=== PATIENT | female | born 1980 | race Caucasian/White ===

== ENCOUNTER 2017-12-01 19:44 | Emergency (ER) | payer SELFPAY ==
[2017-12-01 21:03] VITALS: BP 154/65
--- NOTE | 2017-12-01 21:21 | ED Physician Documentation ---
PD HPI HEENT - Stated complaint Stated Complaint: NOSE INJ - Chief complaint Chief Complaint: Heent - History obtained from History obtained from: Patient - History of Present Illness Timing - onset: Other (Trip and fall hitting a table with her nose just prior to arrival. Pain is minor. She wonders if she might need her nose set.) Review of Systems Constitutional: reports: Reviewed and negative Throat: reports: Reviewed and negative Cardiac: reports: Reviewed and negative PD PAST MEDICAL HISTORY - Past Medical History Psych: Depression, Anxiety Musculoskeletal: Fibromyalgia Other Past Medical History: Enviromental Allergies, Carpel tunnel right wrist - Past Surgical History Past Surgical History: Yes General: Cholecystectomy - Present Medications Home Medications: Ambulatory Orders Medication Instructions Recorded Confirmed Fexofenadine HCl [Jania Allergy] 1 PO DAILY 12/01/17 Ibuprofen [Motrin] 1 TID 12/01/17 Nortriptyline HCl [Pamelor] 1 PO DAILY 12/01/17 diphenhydrAMINE [Benadryl] 1 PO PRN PRN 12/01/17 - Allergies Allergies/Adverse Reactions: Allergies Allergy/AdvReac Type Severity Reaction Status Date / Time azithromycin Allergy Intermediate Hives Verified 12/01/17 19:57 Cephalosporins Allergy Intermediate Hives Verified 12/01/17 19:57 - Social History Does the pt smoke?: No Smoking Status: Never smoker Does the pt drink ETOH?: Yes Does the pt have substance abuse?: No - Immunizations Immunizations are current?: No Immunizations: TDAP >10years/unknown PD ED PE NORMAL - Vitals Vital signs reviewed: Yes - General General: Alert and oriented X 3, No acute distress - HEENT HEENT: Other (Mild tenderness and swelling at the bridge of the nose, she feels her nose is straight. No active epistaxis.) - Neck Neck: Supple, no meningeal sign, No bony TTP - Neuro Neuro: Alert and oriented X 3, Normal speech - Psych Psych: Normal mood, Normal affect Results - Vitals Vitals: Vital Signs - 24 hr 12/01/17 12/01/17 19:48 21:02 Temperature 37 C 36.9 C Heart Rate 106 H 88 Respiratory 20 16 Rate Blood Pressure 172/84 H 154/65 H O2 Saturation 100 96 Oxygen O2 Source Room air PD MEDICAL DECISION MAKING - ED course ED course: She felt like it was not crooked and it is not very tender. She is self-pay and after a discussion of the pros and cons she declined x-rays at this juncture. Departure - Departure Disposition: 01 Home, Self Care Clinical Impression: Contusion of nose Qualifiers: Encounter type: initial encounter Qualified Code(s): S00.33XA - Contusion of nose, initial encounter Condition: Good Record reviewed to determine appropriate education?: Yes Instructions: ED Contusion Nasal Vs Fx No X Ray Comments: Ibuprofen as needed for pain. Follow-up with an ear nose and throat doctor in several weeks if you are unhappy with the appearance, the closest is in [place], . Your blood pressure was elevated today on check into the emergency department. This does not mean that you have hypertension, it is a common phenomenon to come to the emergency department and have elevated blood pressure. I recommend that you see your primary care physician within the week to have it rechecked when you are feeling better.
== END 2017-12-01 21:29 | disposition home or self-care (01) ==
LOC: ED 19:44
DX: S00.33XA Contusion of nose, initial encounter (principal); W01.190A Fall on same level from slipping, tripping and stumbling with subsequent striking against furniture, initial encounter; Y92.019 Unspecified place in single-family (private) house as the place of occurrence of the external cause; R03.0 Elevated blood-pressure reading, without diagnosis of hypertension; M79.7 Fibromyalgia
CPT/HCPCS: 99282; 99283

== ENCOUNTER 2018-08-02 16:43 | Inpatient (IN) | payer MEDICAID ==
[2018-08-02] MEDS ORDERED: ALBUTEROL NEB 2.5 MG/3 ML INH STA (16:59)
--- NOTE | 2018-08-02 17:01 | ED Physician Documentation ---
PD HPI DYSPNEA - Stated complaint Stated Complaint: SOA - Chief complaint Chief Complaint: Resp - History obtained from History obtained from: Patient - History of Present Illness Timing - onset: Other (37-year-old woman with history of mild asthma presents with a Months worth of illness with progressive shortness of breath and nonproductive cough and dyspnea on exertion. She denies pedal edema, chest pain , or calf pain. No recent travel. No possibility of . She has had fevers early in the illness but they are gone now) Review of Systems Ten Systems: 10 systems reviewed and negative Constitutional: reports: Fever, Fatigue Cardiac: denies: Chest pain / pressure, Palpitations, Pedal edema, Calf pain Respiratory: reports: Dyspnea, Cough PD PAST MEDICAL HISTORY - Past Medical History Past Medical History: No Psych: Depression, Anxiety Musculoskeletal: Fibromyalgia - Past Surgical History Past Surgical History: Yes General: Cholecystectomy - Present Medications Home Medications: Ambulatory Orders Medication Instructions Recorded Confirmed Fexofenadine HCl [Jania Allergy] 1 PO DAILY 12/01/17 Ibuprofen [Motrin] 1 TID 12/01/17 Nortriptyline HCl [Pamelor] 1 PO DAILY 12/01/17 diphenhydrAMINE [Benadryl] 1 PO PRN PRN 12/01/17 - Allergies Allergies/Adverse Reactions: Allergies Allergy/AdvReac Type Severity Reaction Status Date / Time azithromycin Allergy Intermediate Hives Verified 08/02/18 16:50 Cephalosporins Allergy Intermediate Hives Verified 08/02/18 16:50 - Social History Does the pt smoke?: No Smoking Status: Never smoker Does the pt drink ETOH?: Yes Does the pt have substance abuse?: No - Family History Family history: reports: Non contributory - Immunizations Immunizations are current?: No Immunizations: TDAP >10years/unknown PD ED PE NORMAL - Vitals Vital signs reviewed: Yes - General General: Alert and oriented X 3 (Slightly breathless and tachypneic), Other ( BMI 69) - HEENT HEENT: PERRL, EOMI - Neck Neck: Supple, no meningeal sign, No bony TTP - Cardiac Cardiac: RRR, No murmur - Respiratory Respiratory: Other (Mild expiratory wheezes but decent air motion.) - Abdomen Abdomen: Soft, Non tender - Extremities Extremities: No edema, No calf tenderness / cord - Neuro Neuro: Alert and oriented X 3, Normal speech - Psych Psych: Normal mood, Normal affect Results - Vitals Vitals: Vital Signs - 24 hr 08/02/18 08/02/18 08/02/18 16:44 17:15 18:10 Temperature 36.9 C Heart Rate 100 100 100 Respiratory 18 24 20 Rate Blood Pressure 124/82 H O2 Saturation 97 Oxygen O2 Source Room air - Labs Labs: Laboratory Tests 08/02/18 08/02/18 08/02/18 18:15 18:15 18:15 WBC 8.9 RBC 4.88 Hgb 14.4 Hct 43.0 MCV 88.1 MCH 29.5 MCHC 33.5 RDW 14.5 Plt Count 275 MPV 7.7 L Neut # (Auto) 5.6 Lymph # (Auto) 2.3 [place] # (Auto) 0.7 Eos # (Auto) 0.3 Baso # (Auto) 0.1 Absolute Nucleated RBC 0.01 Nucleated RBC % 0.1 D-Dimer > 1050.0 H Sodium 136 Potassium 4.0 Chloride 99 L Carbon Dioxide 26 Anion Gap 11.0 BUN 11 Creatinine 0.8 Estimated GFR (MDRD) 82 L Glucose 137 H Calcium 9.0 Total Bilirubin 0.6 AST 34 ALT 38 Alkaline Phosphatase 55 Troponin I B-Natriuretic Peptide Total Protein 7.4 Albumin 3.7 Globulin 3.7 Albumin/Globulin Ratio 1.0 Lipase 25 Urine Color Urine Clarity Urine pH Ur Specific [place] Urine Protein Urine Glucose (UA) Urine Ketones Urine Occult Blood Urine Nitrite Urine Bilirubin Urine Urobilinogen Ur Leukocyte Esterase Ur Microscopic Review Urine Culture Comments Urine HCG, Qual 08/02/18 08/02/18 08/02/18 18:15 18:15 19:25 WBC RBC Hgb Hct MCV MCH MCHC RDW Plt Count MPV Neut # (Auto) Lymph # (Auto) [place] # (Auto) Eos # (Auto) Baso # (Auto) Absolute Nucleated RBC Nucleated RBC % D-Dimer Sodium Potassium Chloride Carbon Dioxide Anion Gap BUN Creatinine Estimated GFR (MDRD) Glucose Calcium Total Bilirubin AST ALT Alkaline Phosphatase Troponin I 0.06 B-Natriuretic Peptide 127 H Total Protein Albumin Globulin Albumin/Globulin Ratio Lipase Urine Color YELLOW Urine Clarity CLEAR Urine pH 6.0 Ur Specific [place] 1.015 Urine Protein NEGATIVE Urine Glucose (UA) NEGATIVE Urine Ketones NEGATIVE Urine Occult Blood NEGATIVE Urine Nitrite NEGATIVE Urine Bilirubin NEGATIVE Urine Urobilinogen 0.2 (NORMAL) Ur Leukocyte Esterase NEGATIVE Ur Microscopic Review NOT INDICATED Urine Culture Comments NOT INDICATED Urine HCG, Qual NEGATIVE - Rads (name of study) 2v chest Radiology: EMP read contemporaneously (normal) PD MEDICAL DECISION MAKING - ED course ED course: 37-year-old woman presents with worsening dyspnea which was initially felt to be an exacerbation of asthma and she had modest improvement with nebulizers however her breathlessness was inappropriate related to her exam and a PE workup was done with a d-dimer that was positive followed by a positive CT angiogram of the chest. Given her size I feel the best approach would be heparin drip and warfarin transition pending echocardiography. Spoke with Dr. Mccarthy for admission at 8:20 PM. The computer calculates her an additional heparin bolus and 16,000 units, this was discussed with the pharmacist filtration supervisor who felt that 9360 units was the appropriate loading dose. - Sepsis Event Vital Signs: Vital Signs - 24 hr 08/02/18 08/02/18 08/02/18 16:44 17:15 18:10 Temperature 36.9 C Heart Rate 100 100 100 Respiratory 18 24 20 Rate Blood Pressure 124/82 H O2 Saturation 97 Oxygen O2 Source Room air Departure - Departure Disposition: 66 [facility] DC/Xfer Clinical Impression: Pulmonary embolism Qualifiers: Pulmonary embolism type: other Chronicity: acute Acute cor pulmonale presence: without acute cor pulmonale Qualified Code(s): I26.99 - Other pulmonary embolism without acute cor pulmonale Condition: Serious Discharge Date/Time: 08/02/18 21:22
[2018-08-02] MEDS ORDERED: TETANUS/DIPHTHERIA/PERTUSSIS 0.5 ML SYRINGE IM ONE (17:02)
--- NOTE | 2018-08-02 17:51 | XRAY Report ---
Reason: dyspnea Procedure Date: 08/02/2018 Accession Number: [id number] / [id number] Procedure: XR - Chest 2 View X-Ray CPT Code: 38436 FULL RESULT: EXAM: CHEST RADIOGRAPHY EXAM DATE: 08/02/2018 05:43 PM. CLINICAL HISTORY: Dyspnea. COMPARISON: 04/13/2011. TECHNIQUE: 2 views. FINDINGS: Mild grid cutoff artifact is noted. Lungs/Pleura: No focal opacities evident. No pleural effusion. No pneumothorax. Normal volumes. Mediastinum: Heart and mediastinal contours are unremarkable. Other: None. IMPRESSION: Normal 2-view chest radiography. RAD[facility]
[2018-08-02] MEDS ORDERED: IPRATROPIUM/ALBUTEROL 3 ML NEB INH STA (17:59)
[2018-08-02] MEDS ORDERED: predniSONE 20 MG TABLET PO STA (17:59)
[2018-08-02 18:21] LABS: BASOPHILS # (AUTO) 0.1 10^3/uL (0.0-0.1); BASOPHILS % (AUTO) 0.7 %; EOSINOPHILS # (AUTO) 0.3 10^3/uL (0.0-0.7); EOSINOPHILS % (AUTO) 2.9 %; HGB - HEMOGLOBIN 14.4 g/dL (12.0-16.0); LYMPHOCYTES # (AUTO) 2.3 10^3/uL (1.5-3.5); LYMPHOCYTES % (AUTO) 25.4 %; MEAN CORPUSCULAR HEMOGLOBIN 29.5 pg (27.0-31.0); MEAN CORPUSCULAR HGB CONC 33.5 g/dL (32.0-36.0); MEAN CORPUSCULAR VOLUME 88.1 fL (81.0-99.0); MEAN PLATELET VOLUME 7.7 fL (7.9-10.8); MONOCYTES # (AUTO) 0.7 10^3/uL (0.0-1.0); MONOCYTES % (AUTO) 7.5 %; NEUTROPHILS # (AUTO) 5.6 10^3/uL (1.5-6.6); NEUTROPHILS % (AUTO) 63.5 %; PLT - PLATELET COUNT 275 10^3/uL (130-450); RED BLOOD COUNT 4.88 10^6/uL (4.20-5.40); RED CELL DISTRIBUTION WIDTH 14.5 % (12.0-15.0); WHITE BLOOD COUNT 8.9 x10^3/uL (4.8-10.8)
[2018-08-02 18:33] LABS: ALBUMIN 3.7 g/dL (3.2-5.5); BILIRUBIN,TOTAL 0.6 mg/dL (0.2-1.0); CREATININE 0.8 mg/dL (0.4-1.0); TOTAL PROTEIN 7.4 g/dL (6.7-8.2)
[2018-08-02] MEDS ORDERED: IOPAMIDOL-300 100 ML VIAL ONE (19:02)
[2018-08-02 19:44] LABS: BILIRUBIN,URINE NEGATIVE (NEGATIVE); GLUCOSE, URINE (UA) NEGATIVE (NEGATIVE); KETONES,URINE (UA) NEGATIVE (NEGATIVE); LEUKOCYTE ESTERASE, URINE NEGATIVE (NEGATIVE); NITRITE,URINE NEGATIVE (NEGATIVE); OCCULT BLOOD,URINE NEGATIVE (NEGATIVE); PROTEIN,URINE NEGATIVE (NEGATIVE); UROBILINOGEN,URINE 0.2 (NORMAL) E.U./dL (NORMAL)
[2018-08-02] MEDS ORDERED: IOPAMIDOL-300 100 ML VIAL IVP ONE (19:44)
[2018-08-02 19:48] LABS: CLARITY,URINE CLEAR (CLEAR); HCG UR QUAL NEGATIVE
--- NOTE | 2018-08-02 20:09 | CT Report ---
Reason: dyspnea, high dimer Procedure Date: 08/02/2018 Accession Number: [id number] / [id number] Procedure: CT - Chest Angio (PE) CPT Code: FULL RESULT: EXAM: CT ANGIOGRAM CHEST EXAM DATE: 08/02/2018 07:47 PM. CLINICAL HISTORY: Dyspnea, high dimer. COMPARISON: None. TECHNIQUE: Routine helical imaging was performed through the chest in the pulmonary arterial phase. IV Contrast: ISOVUE 300 80mL. Reconstructions: Coronal 3-D MIP reconstructions.Sagittal and coronal. In accordance with CT protocol optimization, one or more of the following dose reduction techniques were utilized for this exam: automated exposure control, adjustment of mA and/or KV based on patient size, or use of iterative reconstructive technique. FINDINGS: Pulmonary Arteries: Diagnostic Quality: Markedly suboptimal due to morbid obesity, patient respiration, and timing of the contrast bolus through the segmental arteries. Main pulmonary arteries are of normal caliber. Suggestion of intraluminal filling defects bilaterally within the lobar and segmental vessels (axial image 48 series 10, coronal image 43 series 13, axial image 57 series 10, coronal image 43 series 13). RV/LV is within normal limits. There is no interventricular septal bowing. There is no reflux of contrast material in the IVC. Lungs/Pleura: No consolidation, nodules, or edema. No effusions or pneumothorax. Mediastinum: Normal. No cardiac enlargement or adenopathy. Thoracic Aorta: Unremarkable. Upper Abdomen: Unremarkable. Other: None. IMPRESSION: 1. Markedly suboptimal exam. 2. Suspect pulmonary emboli. RADIA The above findings were discussed with Jean Pierre Snowden by Dr. Deborah Garber at 20:08 hrs on 08/02/18.
[2018-08-02] MEDS ORDERED: LORazepam 2 MG/ML VIAL IVP STA (20:12)
[2018-08-02] MEDS ORDERED: PROMETHAZINE 25 MG/1 ML VIAL IM PRN (20:23)
[2018-08-02] MEDS ORDERED: oxyCODONE 5 MG TABLET PO PRN (20:23)
[2018-08-02] MEDS ORDERED: SODIUM CHLORIDE FLUSH 0.9% 10 ML SYRINGE IVP PRN (20:23)
[2018-08-02] MEDS ORDERED: ACETAMINOPHEN 325 MG TABLET PO PRN (20:23)
[2018-08-02] MEDS ORDERED: PROCHLORPERAZINE 10 MG/2 ML VIAL IVP PRN (20:23)
[2018-08-02] MEDS ORDERED: ONDANSETRON 4 MG/2 ML VIAL IVP PRN (20:23)
[2018-08-02] MEDS ORDERED: HEPARIN 5,000 UNIT/ML VIAL ONE (20:42)
[2018-08-02] MEDS ORDERED: HEPARIN 25000UNITS/500ML (D5W) 25,000 UNIT/500 ML BAG IV SCH (21:00)
[2018-08-02] MEDS ORDERED: IPRATROPIUM/ALBUTEROL 3 ML NEB INH PRN (21:17)
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
[2018-08-02] MEDS: NORTRIPTYLINE 25 MG CAPSULE PO SCH (22:42)
[2018-08-02] MEDS ORDERED: guaiFENesin 600 MG TABLET PO ONE (22:42)
[2018-08-02] MEDS ORDERED: guaiFENesin 600 MG TABLET PO SCH (23:00)
[2018-08-02] MEDS ORDERED: diphenhydrAMINE 25 MG CAPSULE PO PRN (23:35)
[2018-08-03] MEDS: ALPRAZolam 0.25 MG TABLET PO PRN ×3 (00:35→22:47)
[2018-08-03] MEDS: HEPARIN 25000UNITS/500ML (D5W) 25,000 UNIT/500 ML BAG IV SCH ×2 (00:45→11:34)
[2018-08-03] MEDS ORDERED: HEPARIN 25000UNITS/500ML (D5W) 25,000 UNIT/500 ML BAG IV SCH (01:00)
[2018-08-03] MEDS: guaiFENesin/DEXTROMETHORPHAN 10 ML UDC PO PRN ×4 (02:15→21:53)
[2018-08-03] MEDS: ZOLPIDEM 5 MG TABLET PO PRN ×2 (02:24→22:47)
[2018-08-03 03:36] LABS: HGB - HEMOGLOBIN 13.9 g/dL (12.0-16.0); MEAN CORPUSCULAR HEMOGLOBIN 29.6 pg (27.0-31.0); MEAN CORPUSCULAR HGB CONC 33.9 g/dL (32.0-36.0); MEAN CORPUSCULAR VOLUME 87.2 fL (81.0-99.0); MEAN PLATELET VOLUME 8.1 fL (7.9-10.8); RED BLOOD COUNT 4.71 10^6/uL (4.20-5.40); RED CELL DISTRIBUTION WIDTH 14.2 % (12.0-15.0); WHITE BLOOD COUNT 10.7 x10^3/uL (4.8-10.8)
[2018-08-03] MEDS: SODIUM CHLORIDE FLUSH 0.9% 10 ML SYRINGE IVP SCH ×3 (03:39→17:59)
[2018-08-03 04:01] LABS: ALBUMIN 3.6 g/dL (3.2-5.5); ALBUMIN/GLOBULIN RATIO 0.9 (1.0-2.2); ALKALINE PHOSPHATASE 53 IU/L (42-121); ALT ALANINE AMINOTRANSFERASE 38 IU/L (10-60); AST ASPARTATE AMINOTRANSFERASE 31 IU/L (10-42); BILIRUBIN,TOTAL 0.5 mg/dL (0.2-1.0); BUN - BLOOD UREA NITROGEN 9 mg/dL (6-20); CALCIUM 8.8 mg/dL (8.5-10.3); CARBON DIOXIDE - CO2 25 mmol/L (21-32); CHLORIDE 102 mmol/L (101-111); CHOL/HDL RATIO 2.7 (<4.4); CHOLESTEROL 123 mg/dL; CREATININE 0.8 mg/dL (0.4-1.0); GFR - MDRD 82 (>89); GLUCOSE 133 mg/dL (70-100); HDL CHOLESTEROL 46 mg/dL; LDL CHOLESTEROL,CALCULATED 64 mg/dL; LDL/HDL RATIO 1.4 (<4.4); SODIUM 137 mmol/L (135-145); TOTAL PROTEIN 7.4 g/dL (6.7-8.2); VLDL CHOLESTEROL 13 mg/dL
[2018-08-03 04:43] LABS: HEMOGLOBIN A1C 0.58 g/dL; HEMOGLOBIN A1C % 5.7 % (4.6-6.2)
[2018-08-03] MEDS ORDERED: PERFLUTREN LIPID MICROSPHERES 1.65 MG/1.5 ML VIAL IVP ONE (08:41)
[2018-08-03] MEDS ORDERED: NORTRIPTYLINE 25 MG CAPSULE PO SCH (09:00)
[2018-08-03 09:05] LABS: HGB - HEMOGLOBIN 13.9 g/dL (12.0-16.0); MEAN CORPUSCULAR HEMOGLOBIN 29.1 pg (27.0-31.0); MEAN CORPUSCULAR VOLUME 88.1 fL (81.0-99.0); MEAN PLATELET VOLUME 7.9 fL (7.9-10.8); RED BLOOD COUNT 4.79 10^6/uL (4.20-5.40); RED CELL DISTRIBUTION WIDTH 14.5 % (12.0-15.0); WHITE BLOOD COUNT 10.5 x10^3/uL (4.8-10.8)
[2018-08-03] MEDS: POLYETHYLENE GLYCOL 3350 17 GM PACKET PO SCH (10:39)
[2018-08-03] MEDS: FAMOTIDINE 20 MG TABLET PO SCH (10:39)
[2018-08-03] MEDS: SACCHAROMYCES BOULARDII 250 MG CAPSULE PO SCH ×2 (14:17→20:54)
--- NOTE | 2018-08-03 15:21 | Ultrasound Report ---
Reason: need to find dvt w subop CTA chest Procedure Date: 08/03/2018 Accession Number: [id number] / [id number] Procedure: US - Duplex Ext Veins Bilateral CPT Code: FULL RESULT: EXAM: BILATERAL LOWER EXTREMITY VENOUS ULTRASOUND EXAM DATE: 08/03/2018 02:55 PM. CLINICAL HISTORY: Suboptimal CT pulmonary angiogram suspicious but not diagnostic for pulmonary emboli. Assess for presence of deep venous thrombosis. COMPARISON: CT pulmonary angiogram 08/02/2018. TECHNIQUE: Real-time sonographic vascular imaging was performed by the textile machinery sales representative through the lower extremities utilizing both color-flow and Doppler spectral analysis. Multiple account retention representative static images were saved for review. FINDINGS: This study is extremely limited secondary to the patient's body habitus. Right: Common Femoral Vein (CFV): Normal. Femoral Vein (FV) Dist: Normal. Popliteal Vein: Normal. Posterior Tibial Veins: Normal. Left: Common Femoral Vein (CFV): Normal. Femoral Vein (FV) Dist: Normal. Popliteal Vein: Normal. Posterior Tibial Veins: Normal. IMPRESSION: Limited examination without evidence for deep venous thrombosis in the imaged veins. [facility]
[2018-08-03] MEDS ORDERED: IOPAMIDOL-300 100 ML VIAL ONE (15:43)
--- NOTE | 2018-08-03 17:07 | PROVIDER PROGRESS NOTE ---
Subjective - Prog Note Date Prog Note Date: 08/03/18 Prog Note Time: 17:11 - Subjective Subjective: She is getting up to go to the bathroom with an assist. She does get a little more short of breath than usual but she does not feel as short of breath that she did yesterday. No chest pain. No dizziness or near syncope. O2 sat has been 93-97% on room air Current Medications - Current Medications Current Medications: Active Medications Acetaminophen (Tylenol) 650 mg PO Q4HR PRN PRN Reason: Pain 1 to 4 Albuterol/Ipratropium (Duoneb) 3 ml INH Q4HR PRN PRN Reason: Wheezing Alprazolam (Xanax) 0.25 mg PO Q6HR PRN PRN Reason: Anxiety Last Admin: 08/03/18 16:19 Dose: 0.25 mg Diphenhydramine HCl (Benadryl) 25 mg PO QPM PRN PRN Reason: Insomnia Last Admin: 08/03/18 00:35 Dose: 25 mg Famotidine (Pepcid) 20 mg PO DAILY [facility] Last Admin: 08/03/18 10:39 Dose: Not Given Guaifenesin (Robitussin Dm) 10 ml PO Q6HR PRN PRN Reason: Cough Last Admin: 08/03/18 16:19 Dose: 10 ml Heparin Sodium (Porcine) () 2,900 unit IVP Q6H PRN PRN Reason: Anti -Xa <0.2 Heparin Sodium/Dextrose () 25,000 unit in 500 mls @ 35.1 mls/hr IV .[id number] RAJI ; 15 UNIT/KG/HR PRN Reason: Protocol Last Admin: 08/03/18 11:34 Dose: 15 unit/kg/hr, 35.1 mls/hr Nortriptyline HCl (Pamelor) 50 mg PO QPM RAJI Last Admin: 08/02/18 22:42 Dose: 50 mg Ondansetron HCl (Zofran Inj) 4 mg IVP Q6HR PRN PRN Reason: Nausea / Vomiting Oxycodone HCl (Roxicodone) 5 mg PO Q4HR PRN PRN Reason: Pain 5 to 7 Polyethylene Glycol (Miralax) 17 gm PO DAILY [facility] Last Admin: 08/03/18 10:39 Dose: Not Given Prochlorperazine Edisylate (Compazine Inj) 10 mg IVP Q6HR PRN PRN Reason: Nausea / Vomiting Promethazine HCl (Phenergan Inj) 25 mg IM Q6HR PRN PRN Reason: Nausea / Vomiting Saccharomyces Boulardii (Florastor) 250 mg PO BIDWM [facility] Last Admin: 08/03/18 14:17 Dose: 250 mg Sodium Chloride (Normal Saline Flush 0.9%) 10 ml IVP PRN PRN PRN Reason: NEEDED PER PROVIDER ORDERS Last Admin: 08/03/18 16:22 Dose: 10 ml Sodium Chloride (Normal Saline Flush 0.9%) 10 ml IVP 0100,0900,1700 [facility] Last Admin: 08/03/18 14:17 Dose: Not Given Zolpidem Tartrate (Ambien) 5 mg PO QPM PRN PRN Reason: Insomnia Last Admin: 08/03/18 02:24 Dose: 5 mg Fexofenadine HCl [Jania Allergy] 180 mg PO DAILY 12/01/17 Nortriptyline HCl [Pamelor] 50 mg PO QPM 12/01/17 diphenhydrAMINE [Benadryl] 25 mg PO QPM PRN 12/01/17 Objective - Vital Signs/Intake & Output Reviewed Vital Signs: Yes Vital Signs: Vital Signs x48h Temp Pulse Pulse Resp BP Pulse Ox 08/03/18 15:34 36.8 C 95 18 106/74 97 08/03/18 11:10 102 H 16 08/03/18 09:03 37 C 100 18 133/93 H 93 Intake & Output: Intake & Output 07/31/18 08/01/18 08/02/18 08/03/18 23:59 23:59 23:59 23:59 Intake Total 150 1876.665 Balance 150 1876.665 - Objective General Appearance: positive: Alert, Mild distress, Other (Tall morbidly obese pleasant white female who looks younger than stated age) Eyes Bilateral: positive: PERRL, EOMI ENT: positive: Pharynx nml Neck: positive: No JVD. negative: Stiff neck, Carotid bruit Respiratory: positive: Chest non-tender. negative: Wheezes, Rales, Rhonchi Cardiovascular: positive: Tachycardia (From 95-103). negative: Regular rate & rhythm, Systolic murmur, Gallop/S4, Friction rub Abdomen: positive: Non-tender, Nml bowel sounds. negative: Guarding, Rebound Skin: positive: Warm, Dry Extremities: positive: Non-tender, Pedal edema Neurologic/Psychiatric: positive: Oriented x3, CN's nml (2-12), Motor nml - Lab Results Fish Bones: 08/03/18 09:08/03/18 03:20 Other Labs: Lab Results x24hrs 08/03/18 08/03/18 08/03/18 Range/Units 09:01 09: 07:24 WBC 10.5 (4.8-10.8) x10^3/uL RBC 4.79 (4.20-5.40) 10^6/uL Hgb 13.9 (12.0-16.0) g/dL Hct 42.2 (37.0-47.0) % MCV 88.1 (81.0-99.0) fL MCH 29.1 (27.0-31.0) pg MCHC 33.0 (32.0-36.0) g/dL RDW 14.5 (12.0-15.0) % Plt Count 291 (130-450) 10^3/uL MPV 7.9 (7.9-10.8) fL Anti-Xa Level 0.4 ( - 0.7) U/mL Sodium (135-145) mmol/L Potassium (3.5-5.0) mmol/L Chloride (101-111) mmol/L Carbon Dioxide (21-32) mmol/L Anion Gap (6-13) BUN (6-20) mg/dL Creatinine (0.4-1.0) mg/dL Estimated GFR (MDRD) (>89) Glucose (70-100) mg/dL Glycated Hemoglobin (4.6-6.2) % Estim Average Glucose (70-100) Calcium (8.5-10.3) mg/dL Total Bilirubin (0.2-1.0) mg/dL AST (10-42) IU/L ALT (10-60) IU/L Alkaline Phosphatase (42-121) IU/L Troponin I < 0.04 (<0.49) ng/mL B-Natriuretic Peptide (5-100) pg/mL Total Protein (6.7-8.2) g/dL Albumin (3.2-5.5) g/dL Globulin (2.1-4.2) g/dL Albumin/Globulin Ratio (1.0-2.2) Triglycerides ( - 149) mg/dL Cholesterol ( - 199) mg/dL LDL Cholesterol, Calc ( - 129) mg/dL VLDL Cholesterol mg/dL HDL Cholesterol (60 - ) mg/dL LDL/HDL Ratio (<4.4) Cholesterol/HDL Ratio (<4.4) 08/03/18 08/03/18 08/03/18 Range/Units 03:20 03:20 03:20 WBC (4.8-10.8) x10^3/uL RBC (4.20-5.40) 10^6/uL Hgb (12.0-16.0) g/dL Hct (37.0-47.0) % MCV (81.0-99.0) fL MCH (27.0-31.0) pg MCHC (32.0-36.0) g/dL RDW (12.0-15.0) % Plt Count (130-450) 10^3/uL MPV (7.9-10.8) fL Anti-Xa Level 0.4 ( - 0.7) U/mL Sodium (135-145) mmol/L Potassium (3.5-5.0) mmol/L Chloride (101-111) mmol/L Carbon Dioxide (21-32) mmol/L Anion Gap (6-13) BUN (6-20) mg/dL Creatinine (0.4-1.0) mg/dL Estimated GFR (MDRD) (>89) Glucose (70-100) mg/dL Glycated Hemoglobin 5.7 (4.6-6.2) % Estim Average Glucose 117 H (70-100) Calcium (8.5-10.3) mg/dL Total Bilirubin (0.2-1.0) mg/dL AST (10-42) IU/L ALT (10-60) IU/L Alkaline Phosphatase (42-121) IU/L Troponin I (<0.49) ng/mL B-Natriuretic Peptide 148 H (5-100) pg/mL Total Protein (6.7-8.2) g/dL Albumin (3.2-5.5) g/dL Globulin (2.1-4.2) g/dL Albumin/Globulin Ratio (1.0-2.2) Triglycerides ( - 149) mg/dL Cholesterol ( - 199) mg/dL LDL Cholesterol, Calc ( - 129) mg/dL VLDL Cholesterol mg/dL HDL Cholesterol (60 - ) mg/dL LDL/HDL Ratio (<4.4) Cholesterol/HDL Ratio (<4.4) 08/03/18 08/03/18 08/03/18 Range/Units 03:20 03:20 01:15 WBC 10.7 (4.8-10.8) x10^3/uL RBC 4.71 (4.20-5.40) 10^6/uL Hgb 13.9 (12.0-16.0) g/dL Hct 41.1 (37.0-47.0) % MCV 87.2 (81.0-99.0) fL MCH 29.6 (27.0-31.0) pg MCHC 33.9 (32.0-36.0) g/dL RDW 14.2 (12.0-15.0) % Plt Count 281 (130-450) 10^3/uL MPV 8.1 (7.9-10.8) fL Anti-Xa Level ( - 0.7) U/mL Sodium 137 (135-145) mmol/L Potassium 4.2 (3.5-5.0) mmol/L Chloride 102 (101-111) mmol/L Carbon Dioxide 25 (21-32) mmol/L Anion Gap 10.0 (6-13) BUN 9 (6-20) mg/dL Creatinine 0.8 (0.4-1.0) mg/dL Estimated GFR (MDRD) 82 L (>89) Glucose 133 H (70-100) mg/dL Glycated Hemoglobin (4.6-6.2) % Estim Average Glucose (70-100) Calcium 8.8 (8.5-10.3) mg/dL Total Bilirubin 0.5 (0.2-1.0) mg/dL AST 31 (10-42) IU/L ALT 38 (10-60) IU/L Alkaline Phosphatase 53 (42-121) IU/L Troponin I 0.06 (<0.49) ng/mL B-Natriuretic Peptide (5-100) pg/mL Total Protein 7.4 (6.7-8.2) g/dL Albumin 3.6 (3.2-5.5) g/dL Globulin 3.8 (2.1-4.2) g/dL Albumin/Globulin Ratio 0.9 L (1.0-2.2) Triglycerides 65 ( - 149) mg/dL Cholesterol 123 ( - 199) mg/dL LDL Cholesterol, Calc 64 ( - 129) mg/dL VLDL Cholesterol 13 mg/dL HDL Cholesterol 46 L (60 - ) mg/dL LDL/HDL Ratio 1.4 (<4.4) Cholesterol/HDL Ratio 2.7 (<4.4) 08/02/18 Range/Units 20:34 WBC (4.8-10.8) x10^3/uL RBC (4.20-5.40) 10^6/uL Hgb (12.0-16.0) g/dL Hct (37.0-47.0) % MCV (81.0-99.0) fL MCH (27.0-31.0) pg MCHC (32.0-36.0) g/dL RDW (12.0-15.0) % Plt Count (130-450) 10^3/uL MPV (7.9-10.8) fL Anti-Xa Level 0.0 ( - 0.7) U/mL Sodium (135-145) mmol/L Potassium (3.5-5.0) mmol/L Chloride (101-111) mmol/L Carbon Dioxide (21-32) mmol/L Anion Gap (6-13) BUN (6-20) mg/dL Creatinine (0.4-1.0) mg/dL Estimated GFR (MDRD) (>89) Glucose (70-100) mg/dL Glycated Hemoglobin (4.6-6.2) % Estim Average Glucose (70-100) Calcium (8.5-10.3) mg/dL Total Bilirubin (0.2-1.0) mg/dL AST (10-42) IU/L ALT (10-60) IU/L Alkaline Phosphatase (42-121) IU/L Troponin I (<0.49) ng/mL B-Natriuretic Peptide (5-100) pg/mL Total Protein (6.7-8.2) g/dL Albumin (3.2-5.5) g/dL Globulin (2.1-4.2) g/dL Albumin/Globulin Ratio (1.0-2.2) Triglycerides ( - 149) mg/dL Cholesterol ( - 199) mg/dL LDL Cholesterol, Calc ( - 129) mg/dL VLDL Cholesterol mg/dL HDL Cholesterol (60 - ) mg/dL LDL/HDL Ratio (<4.4) Cholesterol/HDL Ratio (<4.4) ABX Reporting Has patient been on IV antibiotics over the past 48 hours?: No Assessment/Plan - Problem List (1) Pulmonary embolism Impression: Patient presented with 2 weeks of shortness of breath that has become gradually worse. On admission, the patient could not even get up to put on her clothing. The shortness of breath was at rest that day. On presentation to ER the patient was tachycardic and d-dimer was elevated. Patient had a suboptimal CT angiogram of the thorax but it was suspicious for PEs bilaterally. Right heart strain could not be determined from the CT. The patient's troponin was in the indeterminate range at 0.06. Patient's BNP was slightly elevated. The patient was extremely short of breath and became quickly tachycardic with any exertion. Patient was placed on a heparin drip and admitted for pulmonary embolism. This appears to be an unprovoked pulmonary embolism. The patient does appear to have a strong family history of PEs but her only risk factor was her morbid obesity. The patient will need at least 3 months of anticoagulation and will need to be followed by her primary care physician and possibly a lobsterman to determine if she needs any greater length of treatment. The echocardiogram shows moderate to severe right ventricular enlargement and dysfunction. It is not acute. I reread the CT pulmonary angiogram and there is no RV strain. I am concerned that we are treating this patient unnecessarily with anticoagulation Plan: Continue heparin drip For now Echocardiogram Shows right ventricle moderate to severe enlargement. RVSP is at least 42 mmHg. Ejection fraction is normal. Telemetry monitoring Supplemental oxygen as needed Start Coumadin after echocardiogram as long as there is not severe right heart strain If patient does have severe right heart strain or becomes hemodynamically unstable patient will need transfer for interventional treatment of PE. So far there is no right heart strain on echo. Check venous Dopplers of legs to see if we can find a source of clot. If we cannot will repeat CT pulmonary angiogram Qualifiers: Pulmonary embolism type: other Chronicity: acute Acute cor pulmonale presence: without acute cor pulmonale Qualified Code(s): I26.99 - Other pulmonary embolism without acute cor pulmonale (2) Asthma Conclusion/Plan: Patient has a history of mild intermittent asthma. The patient was wheezy on examination with this pulmonary embolism. The patient did improve with nebs and steroids in the emergency department. Patient's lung sounds were clear when reassessed by Hospitalist.. Today lung exam was again clear. Dull bases but no wheezing Plan: Patient will be continued on duo nebs as needed we will hold steroids for now if patient has worsening wheezing then we will consider starting steroids. Qualifiers: Asthma severity: mild Asthma persistence: intermittent (3) Anxiety Conclusion/Plan: Patient has anxiety and was quite anxious about her diagnosis in the emergency department. The patient does take nortriptyline at home which we will continue while she is hospitalized. The patient will also be placed on Xanax as needed while she is hospitalized. We will continue to monitor her symptoms.Anxiety is high as I repeat her studies. I will go over everything including the echocardiogram, venous Dopplers, and CT pulmonary angiogram in detail with her. (4) Hyperglycemia Conclusion/Plan: The patient does not have a history of diabetes but was hyperglycemic on presentation with a blood glucose of 137. The patient is morbidly obese and is at risk of diabetes. This morning her random glucose is 133 and her A1c was 5.7 %. I would recommend she go on metformin for metabolic syndrome. She can do that in the outpatient setting. Especially since she has received dye for her CT pulmonary angiogram last night and I am about to repeat it again. (5) Morbid obesity with BMI of 60.0-69.9, adult Conclusion/Plan: The patient is morbidly obese with a BMI of 69.7. It was discussed with the patient that she does need to lose weight. The patient does understand this and was trying to start exercising and eating right just a few weeks ago when she began having symptoms of shortness of breath. We did discuss the risk factors involved with morbid obesity. Qualifiers: Qualified Code(s): I26.99 - Other pulmonary embolism without acute cor pulmonale
[2018-08-03] MEDS ORDERED: IOPAMIDOL-300 100 ML VIAL IVP ONE (17:30)
--- NOTE | 2018-08-03 18:32 | CT Report ---
Reason: previ CT suboptimal and dopplers of leg neg. Procedure Date: 08/03/2018 Accession Number: [id number] / [id number] Procedure: CT - Chest Angio (PE) CPT Code: FULL RESULT: EXAM: CT ANGIOGRAM CHEST EXAM DATE: 08/03/2018 05:32 PM. CLINICAL HISTORY: Previous CT suboptimal and Dopplers of leg negative. Dyspnea. Elevated D-dimer. COMPARISON: CHEST ANGIO 08/02/2018. TECHNIQUE: Routine helical imaging was performed through the chest in the pulmonary arterial phase. IV Contrast: ISOVUE 300 100 mL. Reconstructions: Coronal 3-D MIP reconstructions.Sagittal and coronal. In accordance with CT protocol optimization, one or more of the following dose reduction techniques were utilized for this exam: automated exposure control, adjustment of mA and/or KV based on patient size, or use of iterative reconstructive technique. FINDINGS: Pulmonary Arteries: Diagnostic quality: Adequate through the segmental arteries. Definite intraluminal filling defects confirmed involving both lower lobes. No saddle emboli. Straightening of the interventricular septum. Right to left ventricular ratio greater than 1. No reflux into the IVC. Lungs/Pleura: No consolidation, nodules, or edema. No effusions or pneumothorax. Mediastinum: Normal. No cardiac enlargement or adenopathy. Thoracic Aorta: Unremarkable. Upper Abdomen: Unremarkable. Other: None. IMPRESSION: 1. Confirmation of pulmonary emboli. 2. Suspect elevated right-sided cardiac pressures. RADIA The above findings were discussed with Radhika Hill by Dr. Deborah Garber at 18:30 hrs on 08/03/18.
[2018-08-03] MEDS: NORTRIPTYLINE 25 MG CAPSULE PO SCH (22:47)
[2018-08-04] MEDS: SODIUM CHLORIDE FLUSH 0.9% 10 ML SYRINGE IVP SCH (01:43)
[2018-08-04] MEDS ORDERED: guaiFENesin 600 MG TABLET PO SCH (02:00)
[2018-08-04] MEDS: guaiFENesin/CODEINE 5 ML UDC PO PRN ×3 (02:03→12:56)
[2018-08-04] MEDS: HEPARIN 25000UNITS/500ML (D5W) 25,000 UNIT/500 ML BAG IV SCH (02:06)
[2018-08-04 06:09] LABS: ALBUMIN 3.5 g/dL (3.2-5.5); BILIRUBIN,TOTAL 0.5 mg/dL (0.2-1.0); CALCIUM 8.5 mg/dL (8.5-10.3); CREATININE 0.8 mg/dL (0.4-1.0); TOTAL PROTEIN 6.9 g/dL (6.7-8.2)
[2018-08-04] MEDS: FAMOTIDINE 20 MG TABLET PO SCH (08:16)
[2018-08-04] MEDS: POLYETHYLENE GLYCOL 3350 17 GM PACKET PO SCH (08:16)
[2018-08-04] MEDS: SACCHAROMYCES BOULARDII 250 MG CAPSULE PO SCH (08:16)
--- NOTE | 2018-08-04 08:53 | Discharge Plan ---
Discharge Plan Disposition: Home, Self Care Condition: Stable Prescriptions: Apixaban [Eliquis] 10 mg PO BID #28 tablet Apixaban [Eliquis] 5 mg PO BID #60 tablet Levalbuterol Tartrate [Xopenex Hfa] 15 gm IH QID PRN #1 [id number].aer.ad PRN Reason: Wheezing Diet: Regular Activity Restrictions: Activity as Tolerated Shower Restrictions: No Driving Restrictions: No Additional Instructions or Follow Up instructions: You were admitted to the hospital because of severe shortness of breath with minimal activity. In the emergency room they evaluated you for causes such as heart disease, lung disease and found you to have probable pulmonary emboli on CT angiogram of the chest. But the study was not a very good study. It was slightly fuzzy. We admitted you to the hospital and started you on immediate anticoagulation with IV heparin. We are transitioning you to an oral anticoagulant that you can take once a day. We did give you the option of Coumadin but you find it to be restrictive and inconvenient to take. We repeated the CT pulmonary angiogram because we were worried that we were going to be treating someone for 3-4 months with medicine that is not without risk and may not be necessary. As such the repeat CT angiogram definitely showed bilateral pulmonary emboli in the lower parts of your lungs. We did an echocardiogram of your heart to see if it was under strain from this. The echocardiogram shows chronic enlarged right heart muscle with possible pulmonary hypertension. We also did ultrasound vein studies of your legs. Your legs did not have blood clots. Please establish yourself with a primary care provider. Our watch caser will give you a list of providers. This is important to do because the next steps will be being referred to a ancillary specialist and a graduate engineer for the echocardiogram findings. You also need to be referred to a windows software engineer to make sure that you do not have a blood clotting disorder. You have shared with us that your father and his father have blood clotting disorders. That means you may have inherited something. The new blood thinners have a risk of causing increased bleeding. So if you develop nosebleeds, blood in your urine, blood in your stool, notify your primary care provider immediately and stop the blood thinner. No Smoking: If you smoke, Please STOP! Call for help. Follow-up with: KIARRA TAMAYO [Primary Care Provider] -
[2018-08-04 09:30] VITALS: BP 108/60
[2018-08-04] MEDS ORDERED: APIXABAN 5 MG TABLET PO SCH (10:00)
--- NOTE | 2018-08-05 19:17 | DISCHARGE SUMMARY ---
Physician: Radhika Hill MD DATE OF ADMISSION: 08/02/2018 DATE OF DISCHARGE: 08/04/2018 DISCHARGE DIAGNOSES: 1. Pulmonary embolism. 2. Asthma. 3. Anxiety. 4. Hyperglycemia. 5. Super obesity. MEDICATIONS AT DISCHARGE: 1. Eliquis 10 mg p.o. b.i.d. for 21 days, followed by Eliquis 5 mg p.o. b.i.d. indefinitely. 2. Benadryl 25 mg p.o. q.p.m. p.r.n. 3. Jania 180 mg p.o. daily. 4. Xopenex HFA 15 grams inhalation q.i.d. p.r.n. 5. Pamelor 50 mg p.o. q.p.m. PRINCIPAL PROCEDURES: 1. Two CT pulmonary angiograms. The first one was suspicious for pulmonary emboli, but not confirmatory. Second pulmonary angiogram shows definite pulmonary emboli bilaterally at both bases without saddle embolus. 2. Echocardiogram to assess for RV strain. While she does not have acute RV strain she has mild right ventricular enlargement. Right ventricular systolic function normal. Mildly abnormal right heart pressures. Right ventricular systolic pressure at rest is 42 mmHg. Ejection fraction on left side is 65%-70% . No significant valvular heart disease. 3. Venous Dopplers of both legs without DVT. HOSPITAL COURSE: The patient is a 37-year-old super obese female who is living on [facility] to take care of relatives. 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 Mom and then she ended up taking care of her grandfather, mom's dad. She just recently put him in memory care at [facility]. Because of her weight, she started exercising and found herself to be severely deconditioned and short of breath. On the morning of admission, however, she was significantly short of breath more than ever. She could not even put on her clothes because she was gasping for air. She called for an ambulance and she was brought to the emergency room. Evaluation showed her to be hypoxic, tachypneic, tachycardic. CT pulmonary angiogram was suspicious and she was admitted for heparin drip and anticoagulation. Because we did not want to commit her to full long-term anticoagulation without making sure she had a PE, we did an echocardiogram looking for right RV strain. RV strain was not present. I spoke to Radiology about what we could do to avoid a second CT pulmonary angiogram. Radiology recommended venous Dopplers and those were negative. Since there are no acute findings of RV strain or DVTs in her legs, I felt compelled to do a second CT pulmonary angiogram to make sure she was not having emboli. With the second CT with good technique. We were able to confirm she has bilateral pulmonary emboli , unprovoked other than Super obesity. No recent travel, no hormone therapy, she is not a smoker. There is a family history of hypercoagulation in father and grandfather however. The patient did not want to go on Coumadin. She preferred to go on medication that was more convenient to use. Eliquis is approximately $500 a month and Xarelto is approximately $700 a month. She opted to do Eliquis. She will be qualifying for an insurance plan by Monday and hopefully the payment will be retroactive for her medications. Adalberto was called in to [place] [facility]. At discharge this patient is a alison white female who has a temperature of 36.7 , pulse 100, blood pressure 108/60, respirations 16, 95% on room air. She is super obese, alert, oriented. Able to get out of the bed and walk to the bathroom without struggling tachypnea, or shortness of breath. Lung sounds are difficult to hear because of the large chest wall size, but she has air sounds that are without wheezing or rhonchi in the mid to upper lung chan. Lung bases are difficult to auscultate. PMI is not palpable. Distant cardiac tones. Regular rate and rhythm. Anxiety is a significant part of her demeanor at this time. Understandably so because she feels like she could have and this is very frightening for her. Much time was spent going over studies, plan of care, and we hope that she will establish herself with a primary care provider on the [place]. She does not know how long she is going to be staying here. She will stay here until her grandfather . Considering she just placed him at [facility] this could be year, 2, 3 years, she does not know. bending shed worker has given her a list of providers that are taking new patients in [place]. She has been signed up for community health plan and hopefully that will come through. Social service also to discuss support programs for her with regard to anxiety, weight, and care provider burnout. Greater than 30 minutes was spent in coordinating discharge. TD: 08/05/2018 08:22 ALLEN
== END 2018-08-04 14:01 | disposition home or self-care (01) | DRG 176 ==
LOC: ED 16:43 → MS2 20:23
PROVIDERS: ADMIT Internal Medicine; ATTEND Specialist
DX: I26.99 Other pulmonary embolism without acute cor pulmonale (principal); Z68.44 Body mass index [BMI] 60.0-69.9, adult; R09.02 Hypoxemia; J45.20 Mild intermittent asthma, uncomplicated; F41.9 Anxiety disorder, unspecified; I51.7 Cardiomegaly; E88.81 Metabolic syndrome and other insulin resistance; E66.01 Morbid (severe) obesity due to excess calories; F32.9 Major depressive disorder, single episode, unspecified; Z83.2 Family history of diseases of the blood and blood-forming organs and certain disorders involving the immune mechanism; Z79.899 Other long term (current) drug therapy
CPT/HCPCS: 36415; 71046; 71275; 80053; 80061; 81001; 81003; 81025; 82270; 83036; 83690; 83721; 83880; 84484; 85025; 85027; 85379; 85520; 87086; 93306; 93970; 94150; 94640; 94664; 96374; 96375; 99283; 99284

== ENCOUNTER 2018-08-05 17:44 | Emergency (ER) | payer MEDICAID ==
--- NOTE | 2018-08-05 18:47 | ED Physician Documentation ---
PD HPI SKIN - Stated complaint Stated Complaint: RT UPPER ARM PX - Chief complaint Chief Complaint: General - History obtained from History obtained from: Patient - History of Present Illness Timing - onset: Today Timing - duration: Days Timing - details: Abrupt onset Location: RUE (noted area of redness and tenderness right lateral deltoid today. Had Tdap vaccine there 2 days ago.) Quality / character: Painful, Discolored (red), Swelling Associated symptoms: No: Fever Review of Systems Constitutional: denies: Fever Neurologic: denies: Focal weakness, Numbness PD PAST MEDICAL HISTORY - Past Medical History Cardiovascular: Pulmonary embolism, Other Respiratory: Asthma Neuro: None Endocrine/Autoimmune: None GI: None CLINICAL CYTOPATHOLOGIST: None : None HEENT: None Psych: Depression, Anxiety Musculoskeletal: Fibromyalgia Derm: None - Past Surgical History Past Surgical History: Yes General: Cholecystectomy - Present Medications Home Medications: Ambulatory Orders Medication Instructions Recorded Confirmed Fexofenadine HCl [Jania Allergy] 180 mg PO DAILY 12/01/17 08/05/18 Nortriptyline HCl [Pamelor] 50 mg PO QPM 12/01/17 08/05/18 diphenhydrAMINE [Benadryl] 25 mg PO QPM PRN 12/01/17 08/05/18 Apixaban [Eliquis] 5 mg PO BID #60 tablet 08/04/18 08/05/18 Apixaban [Eliquis] 10 mg PO BID #28 tablet 08/04/18 08/05/18 Levalbuterol Tartrate [Xopenex Hfa] 15 gm IH QID PRN #1 hfa.aer.ad 08/04/1808/14 Dextromethorphan Polistirex 10 ml PO BID 08/05/18 08/05/18 [Delsym] Doxycycline Monohydrate 100 mg PO BID #14 tablet 08/05/18 - Allergies Allergies/Adverse Reactions: Allergies Allergy/AdvReac Type Severity Reaction Status Date / Time azithromycin Allergy Intermediate Hives Verified 08/05/18 18:28 Cephalosporins Allergy Intermediate Hives Verified 08/05/18 18:28 - Social History Does the pt smoke?: No Smoking Status: Never smoker Does the pt drink ETOH?: Yes Does the pt have substance abuse?: No - Immunizations Immunizations are current?: No Immunizations: TDAP >10years/unknown - POLST Patient has POLST: No POLST Status: Full Code PD ED PE NORMAL - Vitals Vital signs reviewed: Yes - General General: Alert and oriented X 3, No acute distress, Well developed/nourished - Extremities Extremities: Other (right lateral deltoid with rounded 3 cm area of redness and mild swelling, warmth/tender with demarcated edges and no fluctuance. ) Results - Vitals Vitals: Vital Signs - 24 hr 08/05/18 08/05/18 17:47 19:17 Temperature 36.4 C L 36.4 C L Heart Rate 107 H 83 Respiratory 22 18 Rate Blood Pressure 147/76 H 137/75 H O2 Saturation 98 99 Oxygen O2 Source Room air PD MEDICAL DECISION MAKING - ED course Complexity details: considered differential (well demarcated round redness with warmth in area of immunization. Seems like local reaction rather than early infection. Should distinguish itself in next day or two (better or worse)), d/w patient - Sepsis Event Vital Signs: Vital Signs - 24 hr 08/05/18 08/05/18 17:47 19:17 Temperature 36.4 C L 36.4 C L Heart Rate 107 H 83 Respiratory 22 18 Rate Blood Pressure 147/76 H 137/75 H O2 Saturation 98 99 Oxygen O2 Source Room air Departure - Departure Disposition: 01 Home, Self Care Clinical Impression: Local reaction to immunization Qualifiers: Encounter type: initial encounter Qualified Code(s): T88.1XXA - Other complications following immunization, not elsewhere classified, initial encounter Condition: Stable Record reviewed to determine appropriate education?: Yes Instructions: ED Allergic Reaction Local Other Follow-Up: KIARRA TAMAYO [Primary Care Provider] - Prescriptions: Doxycycline Monohydrate 100 mg PO BID #14 tablet Comments: I think this looks like a local reaction to the immunization you had. I would watch and see how it does over the next day or 2. If it has significant increase in size of the redness or any proximal red streaks or you develop fever or other signs of infection, then start the doxycycline antibiotic. Otherwise if you improve over the next couple of days, then don't worry about it. Discharge Date/Time: 08/05/18 19:23
[2018-08-05 19:18] VITALS: BP 137/75
== END 2018-08-05 19:23 | disposition home or self-care (01) ==
LOC: ED 17:44
DX: T88.1XXA Other complications following immunization, not elsewhere classified, initial encounter (principal); T50.A95A Adverse effect of other bacterial vaccines, initial encounter; Z86.711 Personal history of pulmonary embolism; Z79.01 Long term (current) use of anticoagulants
CPT/HCPCS: 99283

== ENCOUNTER 2018-08-08 08:00 | Outpatient (CLI) | payer MEDICAID ==
[2018-08-08 20:46] LABS: BASOPHILS % (AUTO) 0.7 %; EOSINOPHILS # (AUTO) 0.4 10^3/uL (0.0-0.7); EOSINOPHILS % (AUTO) 5.1 %; HGB - HEMOGLOBIN 13.8 g/dL (12.0-16.0); LYMPHOCYTES # (AUTO) 1.6 10^3/uL (1.5-3.5); MEAN CORPUSCULAR HEMOGLOBIN 29.6 pg (27.0-31.0); MEAN CORPUSCULAR HGB CONC 33.6 g/dL (32.0-36.0); MEAN CORPUSCULAR VOLUME 88.2 fL (81.0-99.0); MEAN PLATELET VOLUME 8.3 fL (7.9-10.8); MONOCYTES # (AUTO) 0.7 10^3/uL (0.0-1.0); MONOCYTES % (AUTO) 9.2 %; NEUTROPHILS # (AUTO) 4.7 10^3/uL (1.5-6.6); PLT - PLATELET COUNT 305 10^3/uL (130-450); RED BLOOD COUNT 4.66 10^6/uL (4.20-5.40); RED CELL DISTRIBUTION WIDTH 14.6 % (12.0-15.0); WHITE BLOOD COUNT 7.4 x10^3/uL (4.8-10.8)
[2018-08-08 21:12] LABS: ALBUMIN 3.4 g/dL (3.2-5.5); BILIRUBIN,TOTAL 0.4 mg/dL (0.2-1.0); CALCIUM 8.8 mg/dL (8.5-10.3); CREATININE 0.6 mg/dL (0.4-1.0); TOTAL PROTEIN 6.9 g/dL (6.7-8.2)
[2018-08-08 21:35] LABS: INR 1.6 (0.8-1.2); PT - PROTHROMBIN TIME 17.7 secs (9.9-12.6)
== END 2018-08-08 08:01 | disposition home or self-care (01) ==
LOC: LAB.R 08:00
PROVIDERS: ATTEND Physician Assistant Medical
DX: J45.998 Other asthma (principal); E66.9 Obesity, unspecified; M79.7 Fibromyalgia; I26.99 Other pulmonary embolism without acute cor pulmonale; Z00.00 Encounter for general adult medical examination without abnormal findings; E78.5 Hyperlipidemia, unspecified; E03.9 Hypothyroidism, unspecified; Z79.899 Other long term (current) drug therapy
CPT/HCPCS: 36415; 80053; 85025; 85610; 85730

== ENCOUNTER 2018-08-09 12:23 | Emergency (ER) | payer MEDICAID ==
[2018-08-09 12:37] VITALS: BP 135/68
--- NOTE | 2018-08-09 12:55 | ED Physician Documentation ---
History of Present Illness - Stated complaint Stated Complaint: LEG REDNESS/WARM - Chief complaint Chief Complaint: General - History obtained from History obtained from: Patient - History of Present Illness Timing: Other (37-year-old woman with recent diagnosis of pulmonary embolism on Eliquis. She had a negative ultrasound while in the hospital of her legs recently. She woke this morning with a cramp in the right calf and a warm area on the medial side of the right ankle which is now better. Her shortness of breath is much better. No fevers. 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: None : None HEENT: None Psych: Depression, Anxiety Musculoskeletal: Fibromyalgia Derm: None - Past Surgical History Past Surgical History: Yes General: Cholecystectomy - Present Medications Home Medications: Ambulatory Orders Medication Instructions Recorded Confirmed Fexofenadine HCl [Jania Allergy] 180 mg PO DAILY 12/01/17 08/05/18 Nortriptyline HCl [Pamelor] 50 mg PO QPM 12/01/17 08/05/18 diphenhydrAMINE [Benadryl] 25 mg PO QPM PRN 12/01/17 08/05/18 Apixaban [Eliquis] 5 mg PO BID #60 tablet 08/04/18 08/05/18 Apixaban [Eliquis] 10 mg PO BID #28 tablet 08/04/18 08/05/18 Levalbuterol Tartrate [Xopenex Hfa] 15 gm IH QID PRN #1 hfa.aer.ad 08/04/18 08/05/18 Dextromethorphan Polistirex 10 ml PO BID 08/05/18 08/05/18 [Delsym] Doxycycline Monohydrate 100 mg PO BID #14 tablet 08/05/18 - Allergies Allergies/Adverse Reactions: Allergies Allergy/AdvReac Type Severity Reaction Status Date / Time azithromycin Allergy Intermediate Hives Verified 08/09/18 12:37 Cephalosporins Allergy Intermediate Hives Verified 08/09/18 12:37 - Social History Does the pt smoke?: No Smoking Status: Never smoker Does the pt drink ETOH?: Yes Does the pt have substance abuse?: No - Immunizations Immunizations are current?: No Immunizations: TDAP >10years/unknown - POLST Patient has POLST: No POLST Status: Full Code PD ED PE NORMAL - Vitals Vital signs reviewed: Yes - General General: Alert and oriented X 3, No acute distress, Other (BMI 71) - Cardiac Cardiac: RRR, No murmur - Respiratory Respiratory: No respiratory distress, Clear bilaterally - Extremities Extremities: Other (Mild symmetric pitting Pedal edema of both ankles without any redness or warmth.) - Neuro Neuro: Alert and oriented X 3, Normal speech Results - Vitals Vitals: Vital Signs - 24 hr 08/09/18 12:32 Temperature 36.2 C L Heart Rate 89 Respiratory 20 Rate Blood Pressure 135/68 H O2 Saturation 96 Oxygen O2 Source Room air PD MEDICAL DECISION MAKING - ED course ED course: 37-year-old woman with a resolved warm area on the right medial calf. She had negative ultrasounds in the hospital, but they were limited. Small clot is a possibility but she is being treated so I do not think that would change anything at this juncture. There is no evidence of significant fluid overload. And no clinical evidence of cellulitis at this juncture. We discussed that diagnosis but since she does not have any findings of it now watchful waiting was advised and she was agreeable. - Sepsis Event Vital Signs: Vital Signs - 24 hr 08/09/18 12:32 Temperature 36.2 C L Heart Rate 89 Respiratory 20 Rate Blood Pressure 135/68 H O2 Saturation 96 Oxygen O2 Source Room air Departure - Departure Disposition: 01 Home, Self Care Clinical Impression: Right leg pain Condition: Good Record reviewed to determine appropriate education?: Yes Instructions: ED Acute Pain [facility] Comments: As discussed, return for any worsening symptoms including redness, warmth, fever or other new issues. Your blood pressure was elevated today on check into the emergency department. This does not mean that you have hypertension, it is a common phenomenon to come to the emergency department and have elevated blood pressure. I recommend that you see your primary care physician within the week to have it rechecked when you are feeling better.
== END 2018-08-09 13:03 | disposition home or self-care (01) ==
LOC: ED 12:23
DX: M79.604 Pain in right leg (principal); I26.99 Other pulmonary embolism without acute cor pulmonale; R03.0 Elevated blood-pressure reading, without diagnosis of hypertension; Z79.01 Long term (current) use of anticoagulants; Z68.45 Body mass index [BMI] 70 or greater, adult
CPT/HCPCS: 99282

== ENCOUNTER 2018-08-29 19:25 | Emergency (ER) | payer MEDICAID ==
--- NOTE | 2018-08-29 21:32 | ED Physician Documentation ---
PD HPI UPPER EXT INJURY - Stated complaint Stated Complaint: LT ARM SWELLING - Chief complaint Chief Complaint: Ext Problem - History obtained from History obtained from: Patient - History of Present Illness Location: Left, Arm Type of injury: No: Fall, Twist Timing - onset: How many days ago (has noted couple days of local swelling left upper arm just proximal to the AC area. Minmally tender. Has few small red bumps there, but no draiange. She says they appeared like "white heads" with dots of pus, then unroofed and are just small red spots. She had recent Dx week ago of PE (symptoms of dyspnea) and is on NOAC. Leg U/S was negative, and source VTE not identified. She is concerned this is a new clot. In hospital, she did have an IV at left AC she says.) Timing - duration: Days (2) Timing - details: Gradual onset, Still present Worsened by: No: Moving, Palpating Associated symptoms: Swelling. No: Weakness, Numbness, Discolored Similar symptoms before: Has not had sx before Recently seen: Emergency Dept, Admitted Review of Systems Constitutional: denies: Fever, Chills, Myalgias Respiratory: reports: Dyspnea. 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 : None HEENT: None Psych: Depression, Anxiety Musculoskeletal: Fibromyalgia Derm: None - Past Surgical History Past Surgical History: Yes General: Cholecystectomy - Present Medications Home Medications: Ambulatory Orders Medication Instructions Recorded Confirmed Fexofenadine HCl [Jania Allergy] 180 mg PO DAILY 12/01/17 08/05/18 Nortriptyline HCl [Pamelor] 50 mg PO QPM 12/01/17 08/05/18 diphenhydrAMINE [Benadryl] 25 mg PO QPM PRN 12/01/17 08/05/18 Apixaban [Eliquis] 5 mg PO BID #60 tablet 08/04/18 08/05/18 Apixaban [Eliquis] 10 mg PO BID #28 tablet 08/04/18 08/05/18 Levalbuterol Tartrate [Xopenex Hfa] 15 gm IH QID PRN #1 hfa.aer.ad 08/04/18 08/05/18 Dextromethorphan Polistirex 10 ml PO BID 08/05/18 08/05/18 [Delsym] Doxycycline Monohydrate 100 mg PO BID #14 tablet 08/05/18 Doxycycline Monohydrate 100 mg PO BID #14 tablet 08/29/18 Mupirocin 1 applic TP TID #15 oint...g. 08/29/18 - Allergies Allergies/Adverse Reactions: Allergies Allergy/AdvReac Type Severity Reaction Status Date / Time azithromycin Allergy Intermediate Hives Verified 08/29/18 19:35 Cephalosporins Allergy Intermediate Hives Verified 08/29/18 19:35 - Social History Does the pt smoke?: No Smoking Status: Never smoker Does the pt drink ETOH?: Yes Does the pt have substance abuse?: No - Immunizations Immunizations are current?: No Immunizations: TDAP >10years/unknown - POLST Patient has POLST: No POLST Status: Full Code PD ED PE NORMAL - Vitals Vital signs reviewed: Yes - General General: Alert and oriented X 3, No acute distress, Well developed/nourished - Cardiac Cardiac: RRR, No murmur - Respiratory Respiratory: No respiratory distress, Clear bilaterally - Derm Derm: Normal color, Warm and dry - Extremities Extremities: Other (left AC area without redness nor tenderness. Just proximal to that on biceps side of upper arm there is focal area of swelling with feeling of linear firmness just under surface. No redness. consider superfic phlebitis. ALso 4 point red dots without induration. bedside U/S shows flow in AC and brachial veins. Not tender in axillary area. ) Results - Vitals Vitals: Vital Signs - 24 hr 08/29/18 19:33 Temperature 36.2 C L Heart Rate 98 Respiratory 18 Rate Blood Pressure 153/81 H O2 Saturation 100 Oxygen O2 Source Room air PD MEDICAL DECISION MAKING - ED course Complexity details: considered differential (has some slight swelling without tenderness lower upper arm, just proximal to antecubital area. 4 small red bumps there without drainage. Consider local phlebitis, worry about superficial infection developing. just bedside U/S showed normal flow in brachial and AC veins. ), d/w patient - Sepsis Event Vital Signs: Vital Signs - 24 hr 08/29/18 19:33 Temperature 36.2 C L Heart Rate 98 Respiratory 18 Rate Blood Pressure 153/81 H O2 Saturation 100 Oxygen O2 Source Room air Departure - Departure Disposition: 01 Home, Self Care Clinical Impression: Left upper extremity swelling, Superficial phlebitis, Skin rash Condition: Stable Record reviewed to determine appropriate education?: Yes Follow-Up: Mayra Clark DNP [Primary Care Provider] - Prescriptions: Doxycycline Monohydrate 100 mg PO BID #14 tablet Mupirocin 1 applic TP TID #15 oint...g. Comments: The local swelling you have there may be some inflammation of the surface veins just proximal to the area you have had the IV previously. This is different than deep vein clotting. This would be treated with some warm towels to the area and see if it resolves over several days or so. I am concerned about the small red bumps that you have there that may represent a mild skin infection. Start with mupirocin topical antibiotic to the area and see how it does over the next couple of days. If you have increasing redness or more bumps show up then start doxycycline oral antibiotic as well. Continue your other usual medications. Discharge Date/Time: 08/29/18 22:34
[2018-08-29] MEDS ORDERED: MUPIROCIN 2% OINT 1 GM TOP STA (22:15)
[2018-08-29 22:32] VITALS: BP 125/66
== END 2018-08-29 22:34 | disposition home or self-care (01) ==
LOC: ED 19:25
DX: M79.89 Other specified soft tissue disorders (principal); I80.8 Phlebitis and thrombophlebitis of other sites; R21 Rash and other nonspecific skin eruption; Z86.711 Personal history of pulmonary embolism; Z79.01 Long term (current) use of anticoagulants
CPT/HCPCS: 99283; A9270

== ENCOUNTER 2018-11-02 08:00 | Outpatient (CLI) | payer MEDICAID ==
[2018-11-03 18:10] LABS: HEMOGLOBIN A1C 0.53 g/dL; HEMOGLOBIN A1C % 5.6 % (4.6-6.2)
== END 2018-11-02 23:59 ==
LOC: LAB.N 08:00
PROVIDERS: ATTEND Nurse Practitioner
DX: R73.9 Hyperglycemia, unspecified (principal)
CPT/HCPCS: 36415; 83036

== ENCOUNTER 2019-08-21 14:27 | Outpatient (CLI) | payer MEDICAID ==
[2019-08-21 18:28] LABS: BASOPHILS % (AUTO) 0.5 %; EOSINOPHILS # (AUTO) 0.2 10^3/uL (0.0-0.7); EOSINOPHILS % (AUTO) 2.7 %; HGB - HEMOGLOBIN 13.2 g/dL (12.0-16.0); LYMPHOCYTES # (AUTO) 1.6 10^3/uL (1.5-3.5); LYMPHOCYTES % (AUTO) 19.8 %; MEAN CORPUSCULAR HEMOGLOBIN 28.8 pg (27.0-31.0); MEAN CORPUSCULAR HGB CONC 30.9 g/dL (32.0-36.0); MEAN PLATELET VOLUME 10.1 fL (7.9-10.8); MONOCYTES # (AUTO) 0.7 10^3/uL (0.0-1.0); MONOCYTES % (AUTO) 8.7 %; NEUTROPHILS # (AUTO) 5.4 10^3/uL (1.5-6.6); NEUTROPHILS % (AUTO) 67.5 %; PLT - PLATELET COUNT 234 10^3/uL (130-450); RED BLOOD COUNT 4.59 10^6/uL (4.20-5.40); RED CELL DISTRIBUTION WIDTH 14.1 % (12.0-15.0); WHITE BLOOD COUNT 7.9 x10^3/uL (4.8-10.8)
[2019-08-21 18:55] LABS: ALBUMIN 3.6 g/dL (3.2-5.5); BILIRUBIN,TOTAL 0.5 mg/dL (0.2-1.0); CALCIUM 8.8 mg/dL (8.5-10.3); CREATININE 0.6 mg/dL (0.4-1.0); TOTAL PROTEIN 7.1 g/dL (6.7-8.2)
== END 2019-08-21 14:35 | disposition home or self-care (01) ==
LOC: LAB.N 14:27
PROVIDERS: ATTEND Physician Assistant Medical
DX: Z79.01 Long term (current) use of anticoagulants (principal); I10 Essential (primary) hypertension
CPT/HCPCS: 36415; 80053; 85025

== ENCOUNTER 2019-10-17 12:07 | Outpatient (CLI) | payer MEDICAID | END 2019-10-17 23:59 | disposition home or self-care (01) | LOC: LAB.N 12:07 | PROVIDERS: ATTEND Physician Assistant Medical | DX: Z79.01 Long term (current) use of anticoagulants (principal) | CPT/HCPCS: 85610 ==

== ENCOUNTER 2019-10-23 12:20 | Outpatient (CLI) | payer MEDICAID | END 2019-10-23 23:59 | disposition home or self-care (01) | LOC: LAB.N 12:20 | PROVIDERS: ATTEND Physician Assistant Medical | DX: Z79.01 Long term (current) use of anticoagulants (principal) | CPT/HCPCS: 85610 ==

== ENCOUNTER 2019-10-30 15:07 | Outpatient (CLI) | payer MEDICAID | END 2019-10-30 23:59 | LOC: LAB.N 15:07 | PROVIDERS: ATTEND Physician Assistant Medical | DX: Z79.01 Long term (current) use of anticoagulants (principal) | CPT/HCPCS: 85610 ==

== ENCOUNTER 2019-11-08 11:08 | Outpatient (CLI) | payer MEDICAID | END 2019-11-08 23:59 | disposition home or self-care (01) | LOC: LAB.N 11:08 | PROVIDERS: ATTEND Physician Assistant Medical | DX: Z79.01 Long term (current) use of anticoagulants (principal) | CPT/HCPCS: 85610 ==

== ENCOUNTER 2019-11-15 14:07 | Outpatient (CLI) | payer MEDICAID | END 2019-11-15 23:59 | disposition home or self-care (01) | LOC: LAB.N 14:07 | PROVIDERS: ATTEND Physician Assistant Medical | DX: Z79.01 Long term (current) use of anticoagulants (principal) | CPT/HCPCS: 85610 ==

== ENCOUNTER 2019-11-26 14:09 | Outpatient (CLI) | payer MEDICAID | END 2019-11-26 23:59 | disposition home or self-care (01) | LOC: LAB.N 14:09 | PROVIDERS: ATTEND Physician Assistant Medical | DX: Z79.01 Long term (current) use of anticoagulants (principal) | CPT/HCPCS: 85610 ==

== ENCOUNTER 2019-12-06 08:00 | Outpatient (CLI) | payer MEDICAID | END 2019-12-06 23:59 | disposition home or self-care (01) | LOC: LAB.N 08:00 | PROVIDERS: ATTEND Physician Assistant Medical | DX: Z79.01 Long term (current) use of anticoagulants (principal) | CPT/HCPCS: 85610 ==

== ENCOUNTER 2019-12-16 08:00 | Outpatient (CLI) | payer MEDICAID | END 2019-12-16 23:59 | disposition home or self-care (01) | LOC: LAB.N 08:00 | PROVIDERS: ATTEND Physician Assistant Medical | DX: Z79.01 Long term (current) use of anticoagulants (principal) | CPT/HCPCS: 85610 ==

== ENCOUNTER 2019-12-27 08:00 | Outpatient (CLI) | payer MEDICAID | END 2019-12-27 23:59 | disposition home or self-care (01) | LOC: LAB.N 08:00 | PROVIDERS: ATTEND Physician Assistant Medical | DX: Z51.81 Encounter for therapeutic drug level monitoring (principal); Z79.01 Long term (current) use of anticoagulants | CPT/HCPCS: 85610 ==

== ENCOUNTER 2020-01-03 08:00 | Outpatient (CLI) | payer MEDICAID | END 2020-01-03 23:59 | disposition home or self-care (01) | LOC: LAB.N 08:00 | PROVIDERS: ATTEND Physician Assistant Medical | DX: Z79.01 Long term (current) use of anticoagulants (principal) | CPT/HCPCS: 85610 ==

== ENCOUNTER 2020-01-15 13:39 | Outpatient (CLI) | payer MEDICAID | END 2020-01-15 23:59 | disposition home or self-care (01) | LOC: LAB.N 13:39 | PROVIDERS: ATTEND Physician Assistant Medical | DX: Z79.01 Long term (current) use of anticoagulants (principal) | CPT/HCPCS: 85610 ==

== ENCOUNTER 2020-02-04 15:32 | Outpatient (CLI) | payer MEDICAID | END 2020-02-04 23:59 | disposition home or self-care (01) | LOC: LAB.N 15:32 | PROVIDERS: ATTEND Physician Assistant Medical | DX: Z79.01 Long term (current) use of anticoagulants (principal) | CPT/HCPCS: 85610 ==

== ENCOUNTER 2020-02-21 08:00 | Outpatient (CLI) | payer MEDICAID | END 2020-02-21 23:59 | disposition home or self-care (01) | LOC: LAB.N 08:00 | PROVIDERS: ATTEND Physician Assistant Medical | DX: Z79.01 Long term (current) use of anticoagulants (principal) | CPT/HCPCS: 85610 ==